=== PATIENT | female | born 1985 | race Caucasian/White ===

== ENCOUNTER 2024-02-29 11:20 | Emergency (ER) | payer SELFPAY ==
--- NOTE | ~2024-02-29 | CT_ITS ---
EXAMINATION: CT abdomen pelvis wo con DATE: 02/29/2024 12:44 INDICATION: Left flank pain. TECHNIQUE: Computed tomography (CT) of the abdomen and pelvis was performed without intravenous contr ast. Automated exposure control and iterative reconstruction technique were employed. The dose-length product was 1747.71 mGy-cm. COMPARISON: None FINDINGS: Lung bases are clear. Heart size is normal. No pericardial or pleural effusion. Diffuse hepatic steat osis. Gallbladder, spleen, pancreas, bilateral adrenal glands and right kidney are normal. 7 x 4 mm o bstructing stone at the left ureterovesicular junction with mild to moderate left hydronephrosis and mild left perinephric stranding. No other evident urolithiasis. Bowels including the appendix are nor mal. Decompressed bladder, anteverted uterus and bilateral adnexa are unremarkable. No free intraperi toneal gas or fluid. No pathologically enlarged abdominal or pelvic lymphadenopathy. Moderate to ibrahima re lumbar and lower thoracic spondylosis. IMPRESSION: 1. Obstructing 7 x 4 mm stone at the left ureterovesicular junction with moderate left hydronephrosis . Reviewed, dictated and finalized at location A. IMPRESSION: 1. Obstructing 7 x 4 mm stone at the left ureterovesicular junction with modera te left hydronephrosis.
[2024-02-29 11:43] VITALS: BP 152/100; PULSE 76; RESP 24; TEMP 36.3; O2SAT 97
--- NOTE | 2024-02-29 11:46 | ED.ABDPAIN ---
HPI - Abdominal Pain General Chief Complaint: Abdominal Pain <Teodora House PA-C - Last Filed: 03/02/24 17:47> Stated Complaint: kidney stone left flank pain <Teodora House PA-C - Last Filed: 03/02/24 17:47> Time Seen by Provider: 02/29/24 11:46 <Teodora House PA-C - Last Filed: 03/02/24 17:47> Focused HPI: This is a 39-year-old female that presents to the emergency department for left flank pain. Ongoing since last night. Reports associated nausea, vomiting and dysuria. Reports history of kidney stones. Denies fevers. GENERAL: Well-appearing, well-nourished, and in no acute distress. HEAD: Normocephalic, atraumatic. CHEST: Clear to auscultation. ?No respiratory distress. HEART: Regular rate and rhythm.? NEURO: ?Alert and oriented x3. Patient screened in triage and initial orders placed.? ?Additional care and disposition to be based upon?diagnostic testing and treatment. <Teodora House PA-C - Last Filed: 03/02/24 17:47> History of Present Illness HPI narrative: 39-year-old female presenting with flank pain. States it started around midnight. Feels like prior kidney stones. Thinks that she actually passed a small stone earlier today. Complains of months of dysuria. States that she was recently treated for UTI. Also complains of nausea and vomiting. No further complaints. <Fara Campbell MD - Last Filed: 02/29/24 19:16> Related Data Allergies/Adverse Reactions: Allergies Allergy/AdvReac Type Severity Reaction Status Date / Time No Known Allergies Allergy Verified 02/29/24 11:47 <Teodora House PA-C - Last Filed: 03/02/24 17:47> Review of Systems Review of Systems: All systems reviewed & are unremarkable except as noted in HPI and below <Fara Campbell MD - Last Filed: 02/29/24 19:16> PMFSH Past Medical History Medical History: Medical History (Updated 03/02/24 @ 17:46 by Teodora House PA-C) History of hypertension <Teodora House PA-C - Last Filed: 03/02/24 17:47> Social History Social History: Social History (Updated 03/02/24 @ 17:46 by Teodora House PA-C) Substance use: never <Teodora House PA-C - Last Filed: 03/02/24 17:47> Exam Narrative: GENERAL: Lying in bed, appears uncomfortable HEAD: Normocephalic, atraumatic. EYES: PERRLA and EOMI. ENT: grossly unremarkable NECK: Supple. CHEST: Clear to auscultation. No respiratory distress. HEART: Regular rate and rhythm ABDOMEN: Soft, obese abdomen, nontender, no guarding or rebound EXTREMITIES: Normal range of motion SKIN: Warm, dry, no rash. NEURO: No focal deficits. Alert and oriented x3. PSYCH: Normal mood and affect. <Fara Campbell MD - Last Filed: 02/29/24 19:16> Course Vital Signs Vital signs: Vital Signs Temperature 97.4 F L 02/29/24 11:43 Pulse Rate 76 02/29/24 11:43 Respiratory Rate 24 H 02/29/24 11:43 Blood Pressure 152/100 H 02/29/24 11:43 Pulse Oximetry 97 02/29/24 11:43 Oxygen Delivery Room Air 02/29/24 11:43 Temperature 97.4 F L 02/29/24 11:43 Pulse Rate 69 02/29/24 17:00 Respiratory Rate 20 02/29/24 17:00 Blood Pressure 117/54 L 02/29/24 17:00 Pulse Oximetry 99 02/29/24 17:00 Oxygen Delivery Room Air 02/29/24 11:43 <Teodora House PA-C - Last Filed: 03/02/24 17:47> Vital Signs Temperature 97.4 F L 02/29/24 11:43 Pulse Rate 76 02/29/24 11:43 Respiratory Rate 24 H 02/29/24 11:43 Blood Pressure 152/100 H 02/29/24 11:43 Pulse Oximetry 97 02/29/24 11:43 Oxygen Delivery Room Air 02/29/24 11:43 Temperature 97.4 F L 02/29/24 11:43 Pulse Rate 69 02/29/24 17:00 Respiratory Rate 20 02/29/24 17:00 Blood Pressure 117/54 L 02/29/24 17:00 Pulse Oximetry 99 02/29/24 17:00 Oxygen Delivery Room Air 02/29/24 11:43 <Fara Campbell MD - Last Filed: 02/29/24 19:16> MDM - Abdominal Pain MDM Narrative Medical decision making n
[2024-02-29 11:58] LABS: Basophils Percent Auto 0.3 % (0.2-1.2); Eosinophils Percent Auto 0.1 % (0-4.4); Hematocrit 41.8 % (37.0-47.0); Immature Granulocyte Absolute 0.04 K/mm3 (0.00-0.031); Immature Granulocyte Percent A 0.3 % (0-0.5); Lymphocytes Absolute Auto 1.45 K/mm3 (0.9-3.2); Mean Corpuscular HGB Conc 33.5 g/dl (32-36); Mean Corpuscular Hemoglobin 28.9 pg (26-34); Mean Corpuscular Volume 86.2 fl (80-100); Mean Platelet Volume 8.9 fl (7.4-10.4); Monocytes Absolute Auto 0.9 K/mm3 (0.1-0.6); Monocytes Percent Auto 7.3 % (2.6-8.5); Neutrophils Absolute Auto 9.7 K/mm3 (1.3-6.7); Platelet Count Result 452 k/mm3 (150-375); Red Blood Count 4.85 M/mm3 (4.2-5.4); Red Cell Distribution Width 13.4 % (11.5-14.5); White Blood Count 12.1 K/mm3 (4.5-10.0)
[2024-02-29 12:09] LABS: Alanine Aminotransferase 29 U/L (6-35); Albumin Level 4.3 g/dL (3.5-5.1); Alkaline Phosphatase 89 U/L (38-126); Anion Gap 12 mmol/L (4-12); Aspartate Amino Transferase 41 U/L (14-36); Bilirubin,Total 0.7 mg/dL (0.2-1.3); Blood Urea Nitrogen 24 mg/dL (7-17); Calcium 9.1 mg/dL (8.4-10.2); Carbon Dioxide 23 mmol/L (22-30); Chloride 100 mmol/L (98-107); Estimated CRCL calculation 132 ml/min; Estimated Glomerular Filt Rate > 60; Glucose 136 mg/dL (65-110); Lipase 126 U/L (23-300); Potassium 4.1 mmol/L (3.4-5.0); Sodium 135 mmol/L (137-145)
[2024-02-29 12:35] LABS: Add Urine Microscopic? YES; Appearance Urine Cloudy (Clear); Bacteria Urine None Seen /hpf; Bilirubin Urine 1+ (Negative); Blood Urine Non-Hemolyzed Trace (Negative); Color Urine Dark Yellow (Yellow); Glucose Urine UA Negative (Negative); Ketones Urine 2+ mg/dL (Negative); Leukocyte Esterase Ur Trace LEU/UL (Negative); Mucus Urine Present /lpf; Nitrate Urine Positive (Negative); Non Pathogenic Casts 0-2; Protein Urine 2+ mg/dL (Negative); Squamous Epithelial Cell Urine Few /hpf (Few); WBC Urine 0-5 /hpf (0-3); pH Urine 6.5 (5.0-9.0)
[2024-02-29 15:00] VITALS: BP 103/77; PULSE 65; RESP 20; O2SAT 99
[2024-02-29] MEDS: HYDROmorphone HCL INJ (*CRX) 1 MG/ML SYR IV PUSH ×2 (15:22→16:56)
[2024-02-29] MEDS: ONDANSETRON INJ 4 MG/2 ML VIAL IV PUSH (15:22)
[2024-02-29] MEDS: SODIUM CHLORIDE 0.9% IV 1,000 ML 999 ML IV CONT (15:22)
[2024-02-29] MEDS: cefTRIAXone 2 GM/NS 100 ML 2 GM/100 ML BAG IVPB (15:26)
[2024-02-29 15:30] VITALS: BP 130/72; PULSE 63; RESP 16; O2SAT 100
[2024-02-29 16:00] VITALS: BP 134/76; PULSE 71; RESP 19; O2SAT 96
[2024-02-29 16:30] VITALS: BP 125/56; PULSE 69; RESP 20; O2SAT 99
[2024-02-29 17:00] VITALS: BP 117/54; PULSE 69; RESP 20; O2SAT 99
[2024-03-01 11:35] LABS: BEDSIDEPREGUCG Negative
== END 2024-02-29 19:38 | disposition home or self-care (01) ==
PROVIDERS: Physician Assistant; Emergency Provider Emergency Medicine
DX: N13.2 Hydronephrosis with renal and ureteral calculous obstruction (principal); R82.998 Other abnormal findings in urine; I10 Essential (primary) hypertension
CPT/HCPCS: 36415; 74176; 80053; 81001; 81025; 83690; 85025; 87086; 96365; 96375; 99284; J0696; J1170; J2405; J7030

== ENCOUNTER 2024-03-02 13:37 | Outpatient (CLI) | payer SELFPAY ==
--- NOTE | ~2024-03-02 | XR_ITS ---
EXAMINATION: XR abdomen/kub 1V DATE: 03/02/2024 14:08 INDICATION: Left ureteral stone. TECHNIQUE: A supine view of the abdomen on 2 radiographs was obtained. COMPARISON: CT abdomen and pelvis 02/29/2024 FINDINGS: There are no dilated loops of bowel. There is a phlebolith in left pelvis. There is a 7 mm stone at left ureterovesicular junction. IMPRESSION: 1. 7 mm stone at left ureterovesicular junction. Reviewed, dictated and finalized at location A.
== END 2024-03-02 13:38 | disposition home or self-care (01) ==
PROVIDERS: Visit Provider Nurse Practitioner Family
DX: N20.1 Calculus of ureter (principal)
CPT/HCPCS: 74018

== ENCOUNTER 2024-07-04 20:18 | Emergency (ER) | payer SELFPAY ==
--- NOTE | ~2024-07-04 | XR_ITS ---
EXAMINATION: XR chest 1V portable Exam Date/Time: 07/04/2024 21:36 DORMITORY KEEPER HISTORY: URI Comparison: 08/08/2018. RESULT: Lines, tubes, and devices: None. Lungs and pleura: Clear. Cardiomediastinal silhouette: Stable. Other: No acute osseous or upper abdominal finding. IMPRESSION: No acute cardiopulmonary process. Reviewed, dictated and finalized at location K. ITORY KEEPER
[2024-07-04 20:38] VITALS: BP 150/99; PULSE 93; RESP 17; TEMP 36.2; O2SAT 99
[2024-07-04 21:28] VITALS: BP 159/100; PULSE 97; RESP 20; O2SAT 98
[2024-07-04 23:14] LABS: Influenza A QL RT-PCR Negative (Negative); Influenza B QL RT-PCR Negative (Negative); RSV RNA, RT-PCR Negative (Negative); SARS-CoV-2 RNA PCR Negative (Negative)
--- NOTE | 2024-07-05 00:01 | ED_ITS ---
HPI - General Adult General Chief complaint: Upper Respiratory Infection Stated complaint: sick for 2 weeks Time Seen by Provider: 07/04/24 21:27 History of Present Illness HPI narrative: This is a 39-year-old female presenting ED chief complaint being sick for 2 weeks. Patient says she has had cough congestion ear pain and chest congestion for the last 2 weeks. She has not been getting better. She denies fevers chills or diarrhea. She has had 1 episode of post tussive emesis. Her grandmother is also here who is hypoxic with similar symptoms. Related Data Allergies Allergy/AdvReac Type Severity Reaction Status Date / Time No Known Allergies Allergy Verified 07/04/24 20:23 [facility] Past Medical History Medical History History of hypertension Social History Social History Substance use: never Exam Narrative: APPEARANCE: No apparent distress. Head: atraumatic. Left TM with irritation and scar tissue right TM normal no erythema posterior EYES: EOMI, NOSE: Atraumatic NECK: Trachea midline RESPIRATORY: No increased rate of breathing clear to auscultation CARDIOVASCULAR: RRR, ABDOMINAL: Non-distended MUSCULOSKELETAl: No obvious deformities NEURO: Alert. Moving 4/4 extremities SKIN:: Warm, dry. Normal color PSYCHIATRIC: Normal affect Course Vital Signs Vital signs: Vital Signs Temperature 97.2 F L 07/04/24 20:38 Pulse Rate 93 07/04/24 20:38 Respiratory Rate 17 07/04/24 20:38 Blood Pressure 150/99 H 07/04/24 20:38 Pulse Oximetry 99 07/04/24 20:38 Oxygen Delivery Room Air 07/04/24 20:38 Temperature 97.2 F L 07/04/24 20:38 Pulse Rate 97 07/04/24 21:28 Respiratory Rate 20 07/04/24 21:28 Blood Pressure 159/100 H 07/04/24 21:28 Pulse Oximetry 98 07/04/24 21:28 Oxygen Delivery Room Air 07/04/24 21:26 Medical Decision Making MDM Narrative Medical decision making narrative: -Course: 39-year-old female presenting 2 weeks respiratory symptoms. She is not developing chest congestion. patient will be discharged on course of antibiotics which will cover an ear infection and CAP. Given return precautions. -DDX includes but is not limited to: Acute otitis media, sinusitis viral syndrome, pneumonia COVID, flu -Co-morbidities complicating care: hypertension, morbid obesity -Independent interpretation of studies: chest x-ray clear, viral swabs negative Vital Signs Vital Signs: Vital Signs Temperature 97.2 F L 07/04/24 20:38 Pulse Rate 93 07/04/24 20:38 Respiratory Rate 17 07/04/24 20:38 Blood Pressure 150/99 H 07/04/24 20:38 Pulse Oximetry 99 07/04/24 20:38 Oxygen Delivery Room Air 07/04/24 20:38 Temperature 97.2 F L 07/04/24 20:38 Pulse Rate 97 07/04/24 21:28 Respiratory Rate 20 07/04/24 21:28 Blood Pressure 159/100 H 07/04/24 21:28 Pulse Oximetry 98 07/04/24 21:28 Oxygen Delivery Room Air 07/04/24 21:26 Lab Data Labs: Lab Results 07/04/24 Range/Units 21:54 Influenza A (RT-PCR) Negative (Negative) Influenza B (RT-PCR) Negative (Negative) RSV (RT-PCR) Negative (Negative) SARS-CoV-2 RNA (RT-PCR) Negative (Negative) Discharge Plan Discharge Clinical Impression: Acute ear infection, Chest congestion Patient Disposition: Home, Self-Care Condition: Stable Instructions: Antibiotic Form, Ear Infection (AC), Bacterial Pneumonia (DC) Additional Instructions: You were seen in the emergency department for 2 weeks respiratory symptoms. Please complete the antibiotics as instructed. Please follow-up with your primary care physician for further management. If you develop worsening chest pain or difficulty breathing please return to ED for re-evaluation. Patient Language: Malaysian Prescriptions: New amoxicillin-pot clavulanate 875-125 mg tablet 1 tablet PO Q12H Qty: 20 0RF doxycycline hyclate 100 mg capsule 100 mg PO DAILY Qty: 20 0RF No Action cephalexin 500 mg capsule 500 mg PO Q12H 7 Days Qty: 14 0RF ondansetron 4 mg tablet,disintegrating 4 mg PO Q8H PRN (Reason: nausea and vomiting) Qty: 14 0RF hydrocodone-acetaminophen 5-325 mg tablet 1 tablet PO Q8H PRN (Reason: pain) Qty: 7 0RF Follow-up/Referrals: PHYSICIAN NOT ON STAFF,NONSTAFF [Primary Care Provider] -
[2024-07-05] MEDS: AMOXICILLIN/CLAVULANATE K 875-125 MG TAB 1 TABLET PO (00:10)
[2024-07-05] MEDS: DOXYCYCLINE HYCLATE 100 MG TABLET PO (00:10)
[2024-07-05 00:16] VITALS: BP 137/76; PULSE 76; RESP 16; TEMP 36.4; O2SAT 98
== END 2024-07-05 00:17 | disposition home or self-care (01) ==
PROVIDERS: Emergency Provider Emergency Medicine
DX: H66.92 Otitis media, unspecified, left ear (principal); R09.89 Other specified symptoms and signs involving the circulatory and respiratory systems; I10 Essential (primary) hypertension; E66.01 Morbid (severe) obesity due to excess calories; Z68.44 Body mass index [BMI] 60.0-69.9, adult; Z20.822 Contact with and (suspected) exposure to COVID-19
CPT/HCPCS: 71045; 87637; 99283; A9270

== ENCOUNTER 2024-08-05 13:06 | Emergency (ER) | payer SELFPAY ==
--- NOTE | 2024-08-05 13:47 | ED_ITS ---
HPI - URI/Sore Throat General Chief Complaint: Upper Respiratory Infection Stated Complaint: Cough/Ears Irritation Time Seen by Provider: 08/05/24 13:47 History of Present Illness HPI Narrative: 39 y/o female presented for c/o cough, nasal drainage, sore throat, bilateral ear pain, subjective fever/chills. Onset one week. Reports right ear pain is worse than left. occasional took an [id number] medicine for symptoms. Denies shortness of breath wheezing nausea, vomiting diarrhea, or lethargy. Treated with antibiotics 07/2024 for pneumonia. Has not yet taken BP meds. Related Data Allergies Allergy/AdvReac Type Severity Reaction Status Date / Time No Known Allergies Allergy Verified 07/04/24 20:23 Review of Systems Review of Systems: Per [facility] Past Medical History Medical History History of hypertension Social History Social History Substance use: never Exam Narrative: GENERAL: well-appearing, no acute distress. EYES: conjunctivae clear ENT: Mucous membranes moist. nasal congestion. TMs erythematous with normal light reflex bilaterally; no tragal tenderness. Oropharynx not erythematous without lesions. Tonsils not enlarged and without exudate. No drooling, no hoarseness, no trismus, uvula midline. No tripod positioning, hot potato voice, or soft palate swelling. NECK: Supple. No lymphadenopathy CHEST: Clear to auscultation, breath sounds equal. No respiratory distress, speaks in full sentences. HEART: Regular rate and rhythm. No murmur heard. SKIN: Warm, dry, no rash. NEURO: Alert and oriented x3. Course Course Emergency Course: Patient is aware of diagnosis, understands and agrees to treatment plan. Anticipatory guidance given. Patient agrees to follow-up as directed and is aware of reasons to seek care at the emergency department. Portions of this record may have been created with voice recognition software Level of Care: Express Care Visit MDM - URI/Sore Throat MDM Narrative Medical decision making narrative: discussed physical exam findings consistent with sinusitis. Advise supportive treatments. Patient is appropriate for outpatient treatment and follow-up. Differential Diagnosis Differential diagnosis: Likely upper respiratory infection, viral infection and pharyngitis Discharge Plan Discharge Clinical Impression: Sinusitis Patient Disposition: Home, Self-Care Condition: Stable Instructions: Antibiotic Form, Rhinosinusitis (ED) Additional Instructions: take antibiotic as directed Recommendations: Flonase spray and Zyrtec (or Claritin/[place]) over the counter Cough syrup may cause drowsiness; avoid driving or take it at night time. Tylenol 1000mg every 8 hours as needed for pain Symptomatic treatment includes: rest, fluids, and increase humidity of the air at home. Follow up with your primary care provider in 1 week. Go to the ER for worsening symptoms or concerns. Patient Language: Vietnamese Prescriptions: New benzonatate 200 mg capsule 200 mg PO TID PRN (Reason: cough) Qty: 20 0RF prednisone 50 mg tablet 50 mg PO DAILY Qty: 5 0RF amoxicillin-pot clavulanate 875-125 mg tablet 1 tablet PO Q12H 7 Days Qty: 14 0RF No Action amoxicillin-pot clavulanate 875-125 mg tablet 1 tablet PO Q12H Qty: 20 0RF doxycycline hyclate 100 mg capsule 100 mg PO DAILY Qty: 20 0RF cephalexin 500 mg capsule 500 mg PO Q12H 7 Days Qty: 14 0RF ondansetron 4 mg tablet,disintegrating 4 mg PO Q8H PRN (Reason: nausea and vomiting) Qty: 14 0RF hydrocodone-acetaminophen 5-325 mg tablet 1 tablet PO Q8H PRN (Reason: pain) Qty: 7 0RF Follow-up/Referrals: PHYSICIAN,RELATIONS DIRECTOR [Primary Care Provider] - Time of Disposition: 13:57
[2024-08-05 13:50] VITALS: BP 165/105; PULSE 88; RESP 20; TEMP 36.6; O2SAT 98
== END 2024-08-05 14:05 | disposition home or self-care (01) ==
PROVIDERS: Emergency Provider Nurse Practitioner Family
DX: J32.9 Chronic sinusitis, unspecified (principal); I10 Essential (primary) hypertension
CPT/HCPCS: 99213; G0463

== ENCOUNTER 2024-08-22 16:45 | Emergency (ER) | payer SELFPAY ==
[2024-08-22 16:48] VITALS: BP 147/103; PULSE 113; RESP 16; TEMP 36.6; O2SAT 99
--- NOTE | 2024-08-22 17:11 | ED.EAR ---
HPI - Ear Problem General Chief complaint: Ear Stated complaint: Both Ears Irritation Time Seen by Provider: 08/22/24 17:11 Source: patient, RN notes reviewed and old records reviewed Mode of arrival: ambulatory Limitations: no limitations History of Present Illness HPI Narrative: Patient treated for sinusitis on August 05, 2024 with steroids and antibiotics presents with complaints of bilateral ear pain and nasal drainage. She does report that she used to use Flonase, but has not used it recently because she knocked it off of her desk and has not picked it up off the floor yet. She denies any fever, chills, sweats. She denies any injury or trauma. She has not been taking anything for her symptoms. Symptoms began 2 or 3 days ago Related Data Allergies Allergy/AdvReac Type Severity Reaction Status Date / Time No Known Allergies Allergy Verified 08/22/24 16:49 Review of Systems Review of Systems: All systems reviewed & are unremarkable except as noted in HPI and below Constitutional: Constitutional: Reports no additional constitutional complaints ENT: Reports system reviewed and no additional complaints, except as documented, Reports otalgia, Reports nasal congestion, Reports nasal discharge and Reports sinus pressure Cardiovascular: Cardiovascular: Reports no additional cardiovascular complaints Respiratory: Respiratory: Reports no additional respiratory complaints and Reports cough Gastrointestinal: Gastrointestinal: Reports no additional gastrointestinal complaints [facility] Past Medical History Medical History History of hypertension Social History Social History Substance use: never Comments At the time of my signature, I reviewed and agree with the nursing past medical, surgical, social, and family history. There is no relevant family history pertinent to the patient complaint. Exam Const: General: cooperative, no acute distress, alert and awake Orientation/consciousness: oriented to person, oriented to place and oriented to time HENMT: Head: normal to inspection Ears: TM abnormal with fluid behind the TM bilateral Resp: Effort & Inspection: normal respiratory effort and able to speak in complete sentences Auscultation: clear to auscultation bilaterally, no crackles, no rales, no rhonchi and no wheezes Cardio: Palpation: normal PMI Rate: regular rate Rhythm: regular rhythm Heart sounds: S1 normal heart sound present and S2 normal heart sound present Neuro: General: oriented to person, oriented to place and oriented to time Cranial nerves: Yes CN's II-XII intact bilaterally Psych: Appearance: grossly normal Thought process: Normal thought process present Insight: Good insight present (Psych) Judgement: Good judgement present (Psych) Course Course Level of Care: Express Care Visit Vital Signs Vital signs: Vital Signs Temperature 97.8 F 08/22/24 16:48 Pulse Rate 113 H 08/22/24 16:48 Respiratory Rate 16 08/22/24 16:48 Blood Pressure 147/103 H 08/22/24 16:48 Pulse Oximetry 99 08/22/24 16:48 Oxygen Delivery Room Air 08/22/24 16:48 Temperature 97.8 F 08/22/24 16:48 Pulse Rate 113 H 08/22/24 16:48 Respiratory Rate 16 08/22/24 16:48 Blood Pressure 147/103 H 08/22/24 16:48 Pulse Oximetry 99 08/22/24 16:48 Oxygen Delivery Room Air 08/22/24 16:48 Reviewed Medical Decision Making MDM Narrative Medical decision making narrative: Explained to patient that antibiotics and repeat steroids not appropriate at this time. Advised to use Afrin for no more than 2 days, then Flonase daily. Patient advised follow-up with primary care provider Discharge instructions reviewed with patient, as well as provided in writing per nursing staff. The instructions also include specific and strict return/GO TO THE ER as well as f/u information. All questions have been answered, and the patient deny any further questions with discharge and discharge plan. Some parts of this dictation were generated by voice recognition software and may contain typographical and/or grammatical inaccuracies. Differential Diagnosis Differential Diagnosis: Sinusitis, otalgia, otitis media Medical Records Medical records reviewed: Yes I reviewed the external patient's medical records. Vital Signs Vital Signs: Vital Signs Temperature 97.8 F 08/22/24 16:48 Pulse Rate 113 H 08/22/24 16:48 Respiratory Rate 16 08/22/24 16:48 Blood Pressure 147/103 H 08/22/24 16:48 Pulse Oximetry 99 08/22/24 16:48 Oxygen Delivery Room Air 08/22/24 16:48 Temperature 97.8 F 08/22/24 16:48 Pulse Rate 113 H 08/22/24 16:48 Respiratory Rate 16 08/22/24 16:48 Blood Pressure 147/103 H 08/22/24 16:48 Pulse Oximetry 99 08/22/24 16:48 Oxygen Delivery Room Air 08/22/24 16:48 reviewed Lab Data Lab results reviewed: Yes I reviewed the patient's lab results. Lab results narrative: reviewed Discharge Plan Discharge Clinical Impression: Dysfunction of eustachian tube Qualifiers: Laterality: bilateral Qualified Code(s): H69.93 - Unspecified Eustachian tube disorder, bilateral Patient Disposition: Home, Self-Care Condition: Stable Instructions: Antibiotic Form, Earache (ED) Additional Instructions: Use Afrin per package instructions for no more than 2 days, use Flonase per package instructions daily. Follow-up with primary care provider. Emergency department for new or worse symptoms Patient Language: Hungarian Follow-up/Referrals: PHYSICIAN,FULL SERVICE SUPERVISOR [Primary Care Provider] - Stand Alone Forms: Work/School Release IP Time of Disposition: 17:25
== END 2024-08-22 17:29 | disposition home or self-care (01) ==
PROVIDERS: Emergency Provider Nurse Practitioner Family
DX: H69.93 Unspecified Eustachian tube disorder, bilateral (principal); I10 Essential (primary) hypertension
CPT/HCPCS: 99211; G0463